=== PATIENT | male | born 1990 | race Caucasian/White ===

== ENCOUNTER 2016-10-31 10:48 | Emergency (ER) | payer SELFPAY ==
[~2016-10-31] VITALS: Ht 170.2 cm; Wt 90.0 kg
[~2016-10-31 10:48] MED LIST: CIPR500T4 PO; LORTA5 PO
[2016-10-31 10:51] VITALS: BP 142/86; PULSE 67; RESP 16; TEMP 97.9; O2SAT 97
[2016-10-31] MEDS ORDERED: BACT800T5 PO (11:10)
--- NOTE | 2016-10-31 11:18 | PD ---
HPI Chief Complaint: Skin Problem Time Seen by Provider: 11:03 Travel History International Travel<30 days: No Contact w/Intl Traveler<30days: No Traveled to known affect area: No History of Present Illness HPI This 26-year-old male has noted a lump on his neck for about a week. Today he squeezed it and got pus and a core out of it. He has had MRSA in the past. He is not aware of fever. He has no trouble swallowing. He believes it started as an ingrown hair PFSH Past Medical History Depression: No Diabetes: No Diminished Hearing: No Gastrointestinal Disorders: No Genitourinary: Yes (LLQ TESICULAR PAIN) Implanted Vascular Access Dvce: No Musculoskeletal: Yes (Chipped right ankle, dislocated right wrist (WORK RELATED )-RESOLVED) Immunizations Current: Yes Tetanus Vaccination: < 5 Years Influenza Vaccination: No PNEUMOCCOCAL Vaccine (Year): 2 Past Surgical History Appendectomy: No Cholecystectomy: No Genitourinary Surgery: Yes (L TESTICULAR TORSION JULY 2009) Joint Replacement: No Neurologic Surgery: No Other Surgery: No Social History Alcohol Use: Yes (OCASIONALLY -BEER) Tobacco Use: Yes (1 PPD) Substance Use: No Allergies-Medications (Allergen,Severity, Reaction): Coded Allergies: *MDRO Multi-Drug Resistant Organism (Verified Adverse Reaction, Unknown, ) MRSA (toe wound) - 02/09/09 Reported Meds & Prescriptions Reported Meds & Active Scripts Active Review of Systems General / Constitutional: No: Fever, Chills Eyes: No: Diploplia Cardiovascular: No: Chest Pain or Discomfort Respiratory: No: Cough, Shortness of Breath Gastrointestinal: No: Nausea Genitourinary: No: Urgency Skin: Positive Lumps Physical Exam Narrative GENERAL: Well-developed male SKIN: Focused skin assessment warm/dry. HEAD: Atraumatic. Normocephalic. EYES: Pupils equal and round. No scleral icterus. No injection or drainage. ENT: No nasal bleeding or discharge. Mucous membranes pink and moist. NECK: Trachea midline. No JVD. There is a lesion on the left side of the neck which is erythematous with a central cavity is apparently drained. It is consistent with a pustule which has burst CARDIOVASCULAR: Regular rate and rhythm. No murmur appreciated. RESPIRATORY: No accessory muscle use. Clear to auscultation. Breath sounds equal bilaterally. GASTROINTESTINAL: Abdomen soft, non-tender, nondistended. Hepatic and splenic margins not palpable. MUSCULOSKELETAL: No obvious deformities. No clubbing. No cyanosis. No edema. NEUROLOGICAL: Awake and alert. No obvious cranial nerve deficits. Motor grossly within normal limits. Normal speech. PSYCHIATRIC: Appropriate mood and affect; insight and judgment normal. Data Data Last Documented VS Vital Signs Date Time Temp Pulse Resp B/P (MAP) Pulse Ox O2 Delivery O2 Flow Rate FiO2 10/31/16 10:51 97.9 67 16 142/86 (104) 97 MDM Medical Decision Making Medical Screen Exam Complete: Yes Emergency Medical Condition: Yes Medical Record Reviewed: Yes Differential Diagnosis Differential includes pustule of the neck, mrsa Narrative Course Patient has performed a drainage of the abscess at home with good results. I don't think further drainage is possible this time. I will start him on antibiotics and recommended warm compresses Diagnosis Primary Impression: Abscess, neck Scripts Sulfamethoxazole-Trimethoprim (Bactrim DS) 800-160 Mg Tab 1 TAB PO BID for Infection, #14 TAB 0 Refills Prov: Kennedy Chicas MD 10/31/16 Disposition: 01 DISCHARGE HOME Condition: Stable Kennedy Chicas MD Oct 31, 2016 11:18
== END 2016-10-31 11:30 | disposition home or self-care (01) ==
LOC: PHED 10:48
DX: L02.11 Cutaneous abscess of neck (principal); F17.210 Nicotine dependence, cigarettes, uncomplicated; Z86.14 Personal history of Methicillin resistant Staphylococcus aureus infection
CPT/HCPCS: 99283

== ENCOUNTER 2017-04-10 15:49 | Emergency (ER) | payer SELFPAY ==
[~2017-04-10] VITALS: Ht 172.7 cm; Wt 95.0 kg
[~2017-04-10 15:49] MED LIST changes: +BACT800T5 PO; -CIPR500T4 PO; -LORTA5 PO
[2017-04-10 15:54] VITALS: BP 144/80; PULSE 98; RESP 16; TEMP 98.6; O2SAT 98
[2017-04-10] MEDS ORDERED: CEPH-460 PO (16:53)
[2017-04-10] MEDS ORDERED: BACT800T5 PO (16:53)
--- NOTE | 2017-04-10 16:54 | PD ---
HPI Chief Complaint: Skin Problem Time Seen by Provider: 16:41 Travel History International Travel<30 days: No Contact w/Intl Traveler<30days: No Traveled to known affect area: No History of Present Illness HPI Physical a 6-year-old male here with possible wound infection to his left lower extremity. Patient reports last week he fell from a skateboard and got road rash to his left leg. Since that time areas become increasingly more painful swollen and now has some yellowish drainage. He denies fever or chills. History of MRSA in the past. He has moderate. No aggravating or alleviating factors. PFSH Past Medical History Medical History: Denies Significant Hx Hx Anticoagulant Therapy: No Depression: No Diabetes: No Diminished Hearing: No Gastrointestinal Disorders: No Genitourinary: Yes (LLQ TESICULAR PAIN) Implanted Vascular Access Dvce: No Musculoskeletal: Yes (Chipped right ankle, dislocated right wrist (WORK RELATED )-RESOLVED) Immunizations Current: Yes Tetanus Vaccination: < 5 Years Influenza Vaccination: No PNEUMOCCOCAL Vaccine (Year): 2 Past Surgical History Appendectomy: No Cholecystectomy: No Genitourinary Surgery: Yes (L TESTICULAR TORSION JULY 2009) Joint Replacement: No Neurologic Surgery: No Other Surgery: No Social History Alcohol Use: Yes (OCASIONALLY -BEER) Tobacco Use: Yes (1 PPD) Substance Use: No Allergies-Medications (Allergen,Severity, Reaction): Coded Allergies: *MDRO Multi-Drug Resistant Organism (Verified Adverse Reaction, Unknown, ) MRSA (toe wound) - 02/09/09 Reported Meds & Prescriptions Reported Meds & Active Scripts Active Keflex (Cephalexin) 500 Mg Capsule 500 Mg PO Q6H 10 Days Bactrim DS (Sulfamethoxazole-Trimethoprim) 800-160 Mg Tab 1 Tab PO BID Review of Systems Except as stated in HPI: all other systems reviewed are Neg General / Constitutional: No: Fever Eyes: No: Visual changes HENT: No: Headaches Cardiovascular: No: Chest Pain or Discomfort Respiratory: No: Shortness of Breath Gastrointestinal: No: Abdominal Pain Genitourinary: No: Dysuria Physical Exam Narrative GENERAL: Alert and well-appearing 26-year-old male SKIN: Warm and dry. 2.5CM diameter abrasion to the left lateral lower extremity with small amount of surrounding erythema. The area is indurated without fluctuance. HEAD: Normocephalic. EYES: No injection or drainage. NECK: Supple MUSCULOSKELETAL: No cyanosis. Left lower extremity:no obvious deformity: Abrasion to the left lateral calf. No bony tenderness of the knee. No effusion. No discernible swelling. 2+ distal pulses. Data Data Last Documented VS Vital Signs Date Time Temp Pulse Resp B/P (MAP) Pulse Ox O2 Delivery O2 Flow Rate FiO2 04/10/17 15:54 98.6 98 16 144/80 (101) 98 MDM Medical Decision Making Medical Screen Exam Complete: Yes Emergency Medical Condition: Yes Differential Diagnosis Abscess, cellulitis, wound infection Narrative Course 26-year-old male here with flank infection in the left lower extremity. Extremities neurovascularly intact. No bony tenderness. No joint involvement. Patient will be put on Keflex and Bactrim Diagnosis Primary Impression: Wound infection Referrals: [facility] Additional Instructions: wash the area daily with soap and water. Antibiotics as prescribed Scripts Cephalexin (Keflex) 500 Mg Capsule 500 MG PO Q6H for Infection for 10 Days, #40 CAP 0 Refills Prov: Sasha Basilio 04/10/17 Sulfamethoxazole-Trimethoprim (Bactrim DS) 800-160 Mg Tab 1 TAB PO BID for Infection, #20 TAB 0 Refills Prov: Sasha Basilio 04/10/17 Disposition: 01 DISCHARGE HOME Condition: Stable Sasha Basilio Apr 10, 2017 16:54
== END 2017-04-10 17:04 | disposition home or self-care (01) ==
LOC: PHEFT 15:49
DX: L53.9 Erythematous condition, unspecified (principal)
CPT/HCPCS: 99283